=== PATIENT | female | born 1995 | race Two or more races ===

== ENCOUNTER 2021-09-30 22:22 | Emergency (ER) | payer MEDICAID ==
[~2021-09-30] VITALS: Ht 157.5 cm; Wt 53.0 kg
[2021-09-30 23:29] LABS: CLARITY URINE TURBID (CLEAR); COLOR URINE YELLOW (YELLOW); KETONES URINE NEGATIVE (NEGATIVE); LEUKOCYTE ESTERASE URINE 1+ (NEGATIVE); NITRITE URINE NEGATIVE (NEGATIVE); OCCULT BLOOD URINE 2+ (NEGATIVE); PH URINE 7.5 (4.5-8.0); PROTEIN URINE 1+ (NEGATIVE); SPECIFIC GRAVITY URINE 1.023 (1.005-1.030)
[2021-10-01] MEDS ORDERED: NITR-87 MT (01:02)
[2021-10-01] MEDS ORDERED: PHEN-815 MT (01:02)
[2021-10-01 01:13] VITALS: BP 121/64
== END 2021-10-01 01:16 | disposition home or self-care (01) ==
LOC: ER 22:22
DX: N39.0 Urinary tract infection, site not specified (principal)
CPT/HCPCS: 81003; 87077; 87186; 99283

== ENCOUNTER 2021-12-28 02:11 | Emergency (ER) | payer MEDICAID ==
[~2021-12-28] VITALS: Ht 154.9 cm; Wt 53.0 kg
[~2021-12-28 02:11] MED LIST: NITR-87 MT; PHEN-815 MT
[2021-12-28 02:42] VITALS: BP 117/55
== END 2021-12-28 02:27 | disposition left against medical advice (07) ==
LOC: ER 02:11
DX: Z53.21 Procedure and treatment not carried out due to patient leaving prior to being seen by health care provider (principal); F32.9 Major depressive disorder, single episode, unspecified; F41.9 Anxiety disorder, unspecified

== ENCOUNTER 2022-01-02 01:42 | Emergency (ER) | payer MEDICAID ==
[~2022-01-02] VITALS: Ht 154.9 cm; Wt 53.0 kg
[2022-01-02 02:04] VITALS: BP 124/81
== END 2022-01-02 08:00 | disposition left against medical advice (07) ==
LOC: ER 02:01
DX: Z53.21 Procedure and treatment not carried out due to patient leaving prior to being seen by health care provider (principal)

== ENCOUNTER 2022-09-11 04:21 | Emergency (ER) | payer MEDICAID ==
[~2022-09-11] VITALS: Ht 154.9 cm; Wt 53.0 kg
[2022-09-11 04:39] VITALS: BP 100/59
[2022-09-11 06:33] LABS: CLARITY URINE CLOUDY (CLEAR); COLOR URINE YELLOW (YELLOW); KETONES URINE NEGATIVE (NEGATIVE); LEUKOCYTE ESTERASE URINE NEGATIVE (NEGATIVE); NITRITE URINE NEGATIVE (NEGATIVE); OCCULT BLOOD URINE 3+ (NEGATIVE); PROTEIN URINE NEGATIVE (NEGATIVE); SPECIFIC GRAVITY URINE 1.018 (1.005-1.030)
[2022-09-11 07:07] LABS: BASOPHILS % 1.2 % (0.0-2.0); EOSINOPHILS % 3.4 % (0.0-5.0); HEMATOCRIT. 33.7 % (36.0-48.0); HEMOGLOBIN. 11.2 g/dL (12.0-16.0); LYMPHOCYTES % 37.4 % (20.0-50.0); MEAN CORPUSCULAR HEMOGLOBIN 27.8 pg (28.0-32.0); MEAN CORPUSCULAR VOLUME 83.4 fL (81.0-99.0); MEAN PLATELET VOLUME 9.3 fl (7.4-10.4); MONOCYTES % 10.9 % (2.0-8.0); NEUTROPHILS % 47.1 % (40.0-76.0); PLATELET 323 x1000/uL (130-400); RED BLOOD CELL COUNT 4.04 mill/uL (4.2-5.4); RED CELL DISTRIBUTION WIDTH 13.8 % (11.6-14.6)
[2022-09-11 07:15] LABS: CHLORIDE 106 mEq/L (98-107)
[2022-09-11 07:35] LABS: HCG SCREEN NEGATIVE
[2022-09-11] MEDS ORDERED: IBUP-2030 PO (07:50)
== END 2022-09-11 08:56 | disposition home or self-care (01) ==
LOC: ER 04:21
DX: N93.8 Other specified abnormal uterine and vaginal bleeding (principal)
CPT/HCPCS: 36415; 80053; 81003; 81025; 84703; 85025; 86850; 86900; 99283

== ENCOUNTER 2025-04-12 18:18 | Emergency (ER) | payer MEDICAID ==
[~2025-04-12] VITALS: Ht 170.2 cm; Wt 61.0 kg
[~2025-04-12 18:18] MED LIST changes: +IBUP-2030 PO
[2025-04-12 18:23] VITALS: O2SAT 100
[2025-04-12 20:10] LABS: BASOPHILS % 0.6 % (0.0-2.0); EOSINOPHILS % 0.8 % (0.0-5.0); HEMATOCRIT. 32.2 % (36.0-48.0); HEMOGLOBIN. 10.6 g/dL (12.0-16.0); LYMPHOCYTES % 39.2 % (20.0-50.0); MEAN PLATELET VOLUME 9.5 fl (7.4-10.4); MONOCYTES % 11.1 % (2.0-8.0); NEUTROPHILS % 48.3 % (40.0-76.0); PLATELET 323 x1000/uL (130-400); RED BLOOD CELL COUNT 4.03 mill/uL (4.2-5.4); RED CELL DISTRIBUTION WIDTH 15.0 % (11.6-14.6)
[2025-04-12 20:26] LABS: CREATININE 0.6 mg/dL (0.6-1.0)
[2025-04-12 20:27] LABS: ETHANOL BLOOD < 10 mg/dL (<10); UREA NITROGEN BLOOD 9 mg/dL (9-23)
[2025-04-12 21:24] LABS: CLARITY URINE CLOUDY (CLEAR); COLOR URINE YELLOW (YELLOW); GLUCOSE URINE NEGATIVE (NEGATIVE); KETONES URINE NEGATIVE (NEGATIVE); LEUKOCYTE ESTERASE URINE NEGATIVE (NEGATIVE); NITRITE URINE NEGATIVE (NEGATIVE); OCCULT BLOOD URINE NEGATIVE (NEGATIVE); PH URINE 6.5 (4.5-8.0); PROTEIN URINE NEGATIVE (NEGATIVE); SPECIFIC GRAVITY URINE 1.029 (1.005-1.030); UROBILINOGEN URINE 1.0 E.U./dL (0.2-1.0)
[2025-04-12 21:33] LABS: *AMPHETAMINES SCREEN URINE NEGATIVE (NEGATIVE); *BARBITURATES SCREEN URINE NEGATIVE (NEGATIVE); *BENZODIAZEPINES SCREEN URINE NEGATIVE (NEGATIVE); *COCAINE SCREEN URINE NEGATIVE (NEGATIVE); CANNABINOID URINE SCREEN NEGATIVE (NEGATIVE); METHADONE URINE SCREEN NEGATIVE (NEGATIVE); OPIATES URINE SCREEN NEGATIVE (NEGATIVE); PHENCYCLIDINE URINE SCREEN NEGATIVE (NEGATIVE)
[2025-04-12 21:34] LABS: ECSTASY MDMA SCREEN URINE NEGATIVE (NEGATIVE)
[2025-04-12 21:51] LABS: INFLUENZA TYPE A Presumptive Negative (Pres. Neg.)
[2025-04-12 21:52] LABS: INFLUENZA TYPE B Presumptive Negative (Pres. Neg.)
[2025-04-12 21:53] LABS: RESPIRATORY SYNCYTIAL VIRUS Not Detected (Not Detectd)
[2025-04-12 22:05] LABS: BACTERIA URINE 3+; RBC URINE 0-2 /hpf (0-2); SQUAMOUS EPITHELIAL CELL URINE 2+ /lpf (RARE/1+); WBC URINE 0-2 /hpf (0-2)
[2025-04-12] MEDS: CEPHALEXIN 250MG CAPSULE PO ONE (22:35)
[2025-04-12] MEDS ORDERED: CEPH500C2 MT (23:08)
[2025-04-12 23:43] VITALS: BP 104/58; PULSE 81; RESP 17; TEMP 36.9; O2SAT 97
== END 2025-04-12 23:56 | disposition home or self-care (01) ==
LOC: ER 18:18
DX: N39.0 Urinary tract infection, site not specified (principal); R53.1 Weakness; R20.2 Paresthesia of skin; F41.9 Anxiety disorder, unspecified; Z79.899 Other long term (current) drug therapy
CPT/HCPCS: 99284; 87426; 80048; 81003; 81025; 80307; 82550; 85025; 87420; 87804 ×2; 36415; 93005; G0480; 80305; 80320; 80329